=== PATIENT | male | born 1940 | race Caucasian/White ===

== ENCOUNTER → 2016-10-20 | Outpatient (CLI) | payer OTHER ==
[~2016-10-20] MED LIST: ALPR0.25 PO; AMLO10TA2 PO; ASPI81CH CHEW; ATOR1TAB18 PO; D3 +TAB; FINA5TAB2 PO; ISOS30TA3 PO; LISI-515 PO; NITR0.2D T-DERMAL; NITR1SUB3 SL; RANI150C PO; RANO500 PO
[2016-10-20 09:13] LABS: BLOOD GAS CARBOXYHEMOGLOBIN 1.5 % (0-4); BLOOD GAS HCO3 22 mmol/L (22-26); BLOOD GAS METHEMOGLOBIN 1.1 % (0-2); BLOOD GAS O2 HGB SATURATION 94 % (90-100); BLOOD GAS OXYGEN CONTENT 18.7 Vol % (12.0-20.0); BLOOD GAS PCO2 37 mmHG (38-42); BLOOD GAS PO2 86 mmHG (61-120); BLOOD GAS TOTAL HGB 14.1 G/DL (12.0-16.0); TEMP CORR TO 98.6
[2016-10-22 06:30] LABS: CRITICAL VALUE NO
[2016-10-23 09:09] LABS: DRAW SITE RT RADIAL; FIO2 21 %; NUMBER OF ARTERIAL PUNCTURES 1; STAT NO; ULNAR PULSE PRESENT
--- NOTE | 2016-10-31 08:20 | RSPPFT ---
DATE OF PROCEDURE: 10/20/16 COMMENTS: Spirometry shows FVC of 2.6, FEV1 of 1.2, FEV1/FVC ratio is decreased. Flow is decreased at FEF 25, FEF 50, FEF 75 and FEF 25-75. There is a good response after bronchodilator treatment. Flow volume loop indicates an obstructive pattern. Room air arterial blood gases show pH of 7.39, PCO2 of 37, PO2 of 86, BiCarb of 22 and Saturation is 94%. IMPRESSION: 1. Moderately severe obstructive lung disease. 2. Good response after bronchodilator treatment. 3. Blood gases show normal oxygenation.
== END ==
LOC: PHRSP 08:50
PROVIDERS: ATTEND Specialist
DX: R06.00 Dyspnea, unspecified (principal)
CPT/HCPCS: 36600; 82805; 94060; 94726; 94729